=== PATIENT | male | born 1965 | race African-American/Black ===

== ENCOUNTER 2023-08-16 06:39 | Day surgery (SDC) | payer OTHER ==
[~2023-08-16] VITALS: Ht 170.2 cm; Wt 83.9 kg
[2023-08-16] MEDS ORDERED: diphenhydrAMINE 50 MG/ML VIAL ONE (07:26)
[2023-08-16] MEDS ORDERED: MIDAZOLAM 5 MG/5 ML VIAL ONE (07:26)
[2023-08-16] MEDS ORDERED: LIDOCAINE 2% 100 MG/5 ML UJET TP ONE ×3 (07:26→07:40)
[2023-08-16] MEDS ORDERED: fentaNYL citrate 0.05 MG/ML VIAL ONE (07:26)
[2023-08-16] MEDS ORDERED: MIDAZOLAM 2 MG/2 ML VIAL IVP ONE ×2 (07:36→07:40)
[2023-08-16] MEDS ORDERED: fentaNYL citrate 0.05 MG/ML VIAL IVP ONE ×2 (07:38→07:41)
[2023-08-16] MEDS ORDERED: diphenhydrAMINE 50 MG/ML VIAL IVP ONE ×2 (07:40→07:42)
== END 2023-08-16 08:23 | disposition home or self-care (01) ==
LOC: MDS 06:39 → MMU 06:40 → MDS 08:23
PROVIDERS: ATTEND Internal Medicine Gastroenterology
DX: Z12.11 Encounter for screening for malignant neoplasm of colon (principal); D12.2 Benign neoplasm of ascending colon; D12.5 Benign neoplasm of sigmoid colon; Z86.010 Personal history of colon polyps; I10 Essential (primary) hypertension; E78.5 Hyperlipidemia, unspecified; Z79.899 Other long term (current) drug therapy
CPT/HCPCS: 45385; J1200; J2250; J3010; 88305